=== PATIENT | female | born 1990 | race Caucasian/White ===

== ENCOUNTER 2019-12-07 09:46 | Inpatient (IN) | payer OTHER, SELFPAY ==
[2019-12-07] VITALS (71 sets, daily range): BP systolic 81–143; BP diastolic 47–90; PULSE 42–157; RESP 13–20; TEMP 36.6–36.9; O2SAT 84–100; BMI 38.5
[2019-12-07] MEDS: LACTATED RINGERS 1,000 ML 999 ML IV CONT ×3 (10:30→11:30)
[2019-12-07 10:38] LABS: Basophils Absolute Auto 0.1 K/mm3 (0.0-0.1); Basophils Percent Auto 0.4 % (0.2-1.2); Eosinophils Absolute Auto 0.1 K/mm3 (0-0.3); Eosinophils Percent Auto 0.7 % (0-4.4); Hematocrit 32.9 % (37.0-47.0); Hemoglobin 10.5 g/dL (12.0-15.0); Immature Granulocyte Absolute 0.06 K/mm3 (0.00-0.031); Immature Granulocyte Percent A 0.4 % (0-0.5); Lymphocytes Absolute Auto 2.51 K/mm3 (0.9-3.2); Lymphocytes Percent Auto 18.2 % (18.3-44.2); Mean Corpuscular HGB Conc 31.9 g/dl (32-36); Mean Corpuscular Hemoglobin 25.5 pg (26-34); Mean Corpuscular Volume 79.9 fl (80-100); Mean Platelet Volume 11.7 fl (7.4-10.4); Monocytes Absolute Auto 0.5 K/mm3 (0.1-0.6); Monocytes Percent Auto 3.8 % (2.6-8.5); Neutrophils Absolute Auto 10.6 K/mm3 (1.3-6.7); Neutrophils Percent Auto 76.5 % (45.5-73.1); Platelet Count Result 286 k/mm3 (150-375); Red Blood Count 4.12 M/mm3 (4.2-5.4); Red Cell Distribution Width 13.7 % (11.5-14.5); White Blood Count 13.8 K/mm3 (4.5-10.0)
--- NOTE | 2019-12-07 10:56 | LDADM ---
This patient, Ara Escobar, was admitted to Labor/Delivery/Recovery 119 on 12/07/19 at 09:46. Plans for scheduled section, pain management and were discussed with patient. Patient/family oriented to hospital policies and general routines including ID bracelet, bed and alarms, visiting hours, pain management, procedures, bathroom and other care routines, personal items, smoking policy, room service/diet and guest tray routines, infant security routines, and visiting hours. Patient/Family are encouraged to report perceived risks to care and to ask questions if they do not understand what they are told or what they should do. See OBIX for further documentation.
--- NOTE | 2019-12-07 10:56 | PM.IMHP ---
H&P: HPI History of Present Illness Chief complaint: Scheduled C/S Narrative: Ara Escobar is a 29 yo @ 39.2wks who presents for scheduled primary section due to malpresentation (transverse, spine up). She denies any issues. Her course was otherwise uncomplicated and she had routine care with Dr. Nielson. She denies contractions, leakage of fluid, vaginal bleeding. Good movement. Review of Systems Review of Systems: All systems reviewed & are unremarkable except as noted in HPI and below Constitutional: Constitutional: Denies body ache(s), Denies chills and Denies fatigue Eyes: Eyes: Denies blurry vision ENT: Denies nasal congestion Cardiovascular: Cardiovascular: Denies chest pain and Denies palpitations Respiratory: Respiratory: Denies cough, Denies dyspnea and Denies wheezing Gastrointestinal: Gastrointestinal: Denies abdominal pain, Denies nausea and Denies vomiting Genitourinary: Genitourinary: Denies dysuria, Denies pelvic pain and Denies vaginal discharge Integumentary/Breasts: Skin/Breast: Denies rash Neurologic: Denies headache(s) Psychiatric: Psychiatric: Reports no additional psychiatric complaints [facility] Family History Family History Mother Asthma Social History Social History Smoking packs per day: 10 Smoking cigarettes per day: 200.0 Years smoked: 8 Smoking pack-years: 80.00 Smoking status: Current every day smoker Tobacco type: cigarettes Second hand tobacco smoke exposure: Yes Substance use: never Gender identity (if verbalized by the patient): Female Spiritual care concerns: No Meds Home Medications and Allergies Home Medications Medication Instructions Recorded Confirmed Type PNV,calcium 34-rbrc-twtxm acid 1 tablet PO DAILY 12/07/19 12/07/19 History [PrePlus] acyclovir 800 mg PO DAILY 12/07/19 12/07/19 History aspirin 81 mg PO DAILY 12/07/19 12/07/19 History folic acid 1 mg PO DAILY 12/07/19 12/07/19 History Allergies Allergy/AdvReac Type Severity Reaction Status Date / Time No Known Allergies Allergy Mild Unverified 09/28/18 19:25 Vital Signs Vital Signs - 24 hr 12/07/19 10:16 Pulse Rate 115 H Blood Pressure 125/70 Exam Const: General: comfortable and no acute distress Resp: Effort & Inspection: normal respiratory effort Auscultation: clear to auscultation bilaterally Cardio: Rate: regular rate GI: Other: Gravid : Other: FHT: 140's/mod barbara/ + accels/ no decels - cat 1 TOCO: no contractions Membranes: intact Neuro: Speech: normal speech Psych: Mental Status: mental status grossly normal Affect: normal affect H&P: Results Labs Labs: Short CBC 12/07/19 Range/Units 10:32 WBC 13.8 H (4.5-10.0) K/mm3 Hgb 10.5 L (12.0-15.0) g/dL Hct 32.9 L (37.0-47.0) % Plt Count 286 (150-375) k/mm3 Assessment and Plan Assessment and plan (1) Transverse or oblique presentation: Code(s): O32.2XX0 - Maternal care for transverse and oblique lie, not applicable or unspecified Status: Acute Assessment and Plan: - Transverse position, spine up confirmed prior to section - All risks and benefits explained in detail - All questions/concerns addressed. The appropriate consents were signed - Ancef 2g IV once prior to incision - Hemoglobin 10.5; pt would accept blood in the event of an emergency
[2019-12-07 11:34] LABS: HIV 1/2 Ab P24 Ag Result Negative (Negative)
--- NOTE | 2019-12-07 12:21 | WPDANESEPP ---
Anes - Eval Pre Procedure Procedure: Operation Date: 12/07/19 12:00 Proposed Procedures p Primary Section - Gris Ortiz MD Date/Time: 12/07/19 12:21 Pre Op Diagnosis: Scheduled C/S Patient Data Age: 29 Gender: F Height: 5 ft 2 in Weight: 95.5 kg Last Vital Signs Temp 36.6 C 12/07/19 11:28 Pulse 115 H 12/07/19 10:16 BP 125/70 12/07/19 10:16 Allergies Allergy/AdvReac Type Severity Reaction Status Date / Time No Known Allergies Allergy Mild Unverified 09/28/18 19:25 Home Medications Medication Instructions Recorded Confirmed Type PNV,calcium 59-wgfn-pgait acid 1 tablet PO DAILY 12/07/19 12/07/19 History [PrePlus] acyclovir 800 mg PO DAILY 12/07/19 12/07/19 History aspirin 81 mg PO DAILY 12/07/19 12/07/19 History folic acid 1 mg PO DAILY 12/07/19 12/07/19 History Laboratory Tests 12/07/19 12/07/19 12/07/19 10:32 10:32 10:32 WBC 13.8 K/mm3 H K/mm3 (4.5-10.0) RBC 4.12 M/mm3 L M/mm3 (4.2-5.4) Hgb 10.5 g/dL L g/dL (12.0-15.0) Hct 32.9 % L % (37.0-47.0) MCV 79.9 fl L fl (80-100) MCH 25.5 pg L pg (26-34) MCHC 31.9 g/dl L g/dl (32-36) RDW 13.7 % % (11.5-14.5) Plt Count 286 k/mm3 k/mm3 (150-375) MPV 11.7 fl H fl (7.4-10.4) Immature Gran % (Auto) 0.4 % % (0-0.5) Neut % (Auto) 76.5 % H % (45.5-73.1) Lymph % (Auto) 18.2 % L % (18.3-44.2) [place] % (Auto) 3.8 % % (2.6-8.5) Eos % (Auto) 0.7 % % (0-4.4) Baso % (Auto) 0.4 % % (0.2-1.2) Lymph # (Auto) 2.51 K/mm3 K/mm3 (0.9-3.2) [place] # (Auto) 0.5 K/mm3 K/mm3 (0.1-0.6) Eos # (Auto) 0.1 K/mm3 K/mm3 (0-0.3) Baso # (Auto) 0.1 K/mm3 K/mm3 (0.0-0.1) Abs Immat Gran (auto) 0.06 K/mm3 H K/mm3 (0.00-0.031) Absolute Neuts (auto) 10.6 K/mm3 H K/mm3 (1.3-6.7) Absolute Nucleated RBC 0.0 K/mm3 K/mm3 (0.0-0.012) Nucleated RBC % 0.0 % % (0.0-0.2) RPR Pending HIV 1&2 Ab/P24 Ag 4thGn Blood Type O Positive Antibody Screen Negative 12/07/19 10:32 WBC RBC Hgb Hct MCV MCH MCHC RDW Plt Count MPV Immature Gran % (Auto) Neut % (Auto) Lymph % (Auto) [place] % (Auto) Eos % (Auto) Baso % (Auto) Lymph # (Auto) [place] # (Auto) Eos # (Auto) Baso # (Auto) Abs Immat Gran (auto) Absolute Neuts (auto) Absolute Nucleated RBC Nucleated RBC % RPR HIV 1&2 Ab/P24 Ag 4thGn Negative (Negative) Blood Type Antibody Screen Patient hx anesthesia problems: none Family hx anesthesia problems: none [facility] Family History Family History Mother Asthma Social History Social History Smoking packs per day: 10 Smoking cigarettes per day: 200.0 Years smoked: 8 Smoking pack-years: 80.00 Smoking status: Current every day smoker Tobacco type: cigarettes Second hand tobacco smoke exposure: Yes Substance use: never Gender identity (if verbalized by the patient): Female Spiritual care concerns: No Exam Day of Procedure 12/07/19 12:21 Patient weight: obese Heart: regular rate and rhythm Lungs: clear to auscultation Airway: Mallampati scale class II Neurological: alert and oriented
[2019-12-07] MEDS: OXYTOCIN 30 UNITS/NS 500 ML 30 UNITS/500 ML BAG 125 UNITS IV CONT (14:33)
--- NOTE | 2019-12-07 14:34 | PM.OBPRVD ---
OB - Delivery Note Procedure Delivery date: 12/07/19 Procedure: Procedures Operation Date: 12/07/19 12:00 Actual Procedures Side Surgeon p Section Gris Ortiz MD events: No Care Intrapartal events: Abnormal Presentation (transverse) Route of delivery: Estimated blood loss (mL): 550 Anesthesia type: Epidural Disposition: PACU Narrative: After abnormal position was verified via ultrasound, all risks and benefits were explained in detail. The patient was taken operating room for primary low transverse section. Epidural anesthesia was noted be adequate and she was then prepped and draped in usual sterile fashion in the dorsal position. A Pfannenstiel skin incision was made and carried down through the subcutaneous tissue using Bovie cautery. The rectus fascia was identified and nicked on either side of the midline. The incision was extended laterally using curved mayos. The superior aspect of the fascia was grasped with Yoandy clamps and the underlying rectus muscles were dissected away from the rectus fascia. The same maneuver was performed inferiorly. The rectus muscles were then in the midline and the peritoneum was entered bluntly without complications. A Rich was placed superiorly and a bladder blade inferiorly after a bladder flap was developed. A low transverse incision was made on the uterus and the amniotic sac was ruptured with clear fluid. The fetus was found to be transverse back down and the presenting part was the left arm. The arm was kept in the uterus and the infant was attempted to be delivered breech, however, I was unable to reposition the infant into breech position. The head was then attempted to be brought down to hysterotomy. Using bandage scissors a T-incision was made to allow for more space. With fundal pressure the head was brought up to the hysterotomy and the remaining portion of the shoulders and body were delivered without complications. The mouth and nose were bulb suctioned and the infant had spontaneous cry. The umbilical cord was clamped and cut and the infant was handed off to the waiting pediatric nurse. A segment of cord was collected for cord gases and the remaining cord blood was collected for typing. With Pitocin running and gentle traction on the cord, the placenta delivered without complications. Ring forceps were then used to grasp the edges of the hysterotomy. The uterus was then cleared of all clots and debris using a clean lap. The hysterotomy was repaired in a running interlocking fashion using 0 Vicryl, as well as the additional vertical incision. A 2nd layer imbricating closure using 0 Vicryl was made and the hysterotomy was noted to be hemostatic. The bilateral adnexa were examined and found to be within normal limits. The abdomen was then cleared of all clots and debris. The hysterotomy incision was once again examined and found to be hemostatic. The lower uterine segment was noted to have a bleeding vessel from the bladder flap, therefore a figure of 8 stitch using 3 0 Vicryl was placed. The site continued to ooze and pressure was applied and good hemostasis was noted. The peritoneum, rectus muscles, and rectus fascia were examined and found to be hemostatic. The rectus fascia was then reapproximated using 0 Vicryl in a running fashion. The subcutaneous tissue was then irrigated and made hemostatic with Bovie cautery and reapproximated using 0 Vicryl in a running fashion. The skin was reapproximated using 4 0 Monocryl in a subcuticular fashion and a dressing was placed over the incision. Sponge, lap, needle, and instrument counts were correct at the end of the procedure. Patient tolerated the procedure well and was taken to recovery in stable condition. The patient was informed of the T-incision made on her uturus and need for repeat section if she were to get again. Baby
[2019-12-07 16:07] LABS: Rapid Plasma Reagin Non-Reactive (NonReactive)
--- NOTE | 2019-12-07 16:44 | OBPPTRN ---
Patient transferred to post room #288 via stretcher. Support person present. Oriented to unit, room, information board, rooming in, admission packet and security measures. Patient verbalizes understanding.
[2019-12-07] MEDS: DEXTROSE 5%/0.45% SOD CHL 1,000 ML 125 ML IV CONT (19:11)
[2019-12-08 04:00] VITALS: BP 107/71; PULSE 91; RESP 16; TEMP 36.6; O2SAT 100
[2019-12-08 05:30] LABS: Basophils Percent Auto 0.4 % (0.2-1.2); Eosinophils Absolute Auto 0.1 K/mm3 (0-0.3); Eosinophils Percent Auto 0.7 % (0-4.4); Hematocrit 29.2 % (37.0-47.0); Immature Granulocyte Absolute 0.04 K/mm3 (0.00-0.031); Immature Granulocyte Percent A 0.4 % (0-0.5); Lymphocytes Absolute Auto 1.86 K/mm3 (0.9-3.2); Lymphocytes Percent Auto 17.4 % (18.3-44.2); Mean Corpuscular HGB Conc 30.8 g/dl (32-36); Mean Corpuscular Hemoglobin 25.3 pg (26-34); Mean Platelet Volume 11.9 fl (7.4-10.4); Monocytes Absolute Auto 0.5 K/mm3 (0.1-0.6); Neutrophils Absolute Auto 8.1 K/mm3 (1.3-6.7); Neutrophils Percent Auto 76.1 % (45.5-73.1); Platelet Count Result 231 k/mm3 (150-375); Red Blood Count 3.56 M/mm3 (4.2-5.4); Red Cell Distribution Width 13.6 % (11.5-14.5); White Blood Count 10.7 K/mm3 (4.5-10.0)
--- NOTE | 2019-12-08 07:45 | WPDANLDNPN2 ---
Anes-Prog Note L&D-Neuraxial Date/Time: 12/08/19 07:45 Neuraxial medications: intrathecal PF morphine Opiod-related complaints: none Patient feedback: Patient satisfied with post-operative pain management.
--- NOTE | 2019-12-08 07:45 | WPDANLDPN2 ---
Anes-Prog Note L&D Date/Time: 12/08/19 07:45 Comfortable throughout: section Neuraxial method: spinal Epidural/Spinal procedure site: clean & non-tender Neuro status: Neuro function grossly intact. Cardiovascular status: normal Respiratory status: normal Airway patency: baseline Mental status: baseline Post-Op hydration status: normal Vital Signs: Last Vital Signs Temp 36.6 C 12/08/19 04:00 Pulse 91 12/08/19 04:00 Resp 16 12/08/19 04:00 BP 107/71 12/08/19 04:00 Pulse Ox 100 12/08/19 04:00 I/O: Intake & Output 12/07/19 12/07/19 12/08/19 15:59 23:59 07:59 Intake Total 3100 600 1600 Output Total 200 2650 Balance 2900 600 -1050 Post-procedural complaints: none Patient feedback: Patient satisfied with anesthetic care.
[2019-12-08 07:55] VITALS: BP 107/73; PULSE 109; RESP 16; TEMP 36.9; O2SAT 100
--- NOTE | 2019-12-08 08:40 | PM.OBPNVD ---
OB - PN: Subj Subjective Date/time seen: 12/08/19 08:40 Interval history: 29yo s/p Primary section with a inverted T incision secondary to malposition (transverse) on 12/06. She states she is doing well. Pain is well controlled. Tolerating diet without nausea/vomiting. Denies chest pain, shortness of breath, fevers, chills. Urinary summers removed this morning. Patient comments: no complaints and pain well controlled [place] baby status: doing well feeding status: breast and bottle feeding OB - PN: Obj Data Labs CBC & Chem 7: 12/08/19 04:57 Labs: Laboratory Results - last 24 hr 12/07/19 12/07/19 12/07/19 10:32 10:32 10:32 WBC 13.8 H RBC 4.12 L Hgb 10.5 L Hct 32.9 L MCV 79.9 L MCH 25.5 L MCHC 31.9 L RDW 13.7 Plt Count 286 MPV 11.7 H Immature Gran % (Auto) 0.4 Neut % (Auto) 76.5 H Lymph % (Auto) 18.2 L [place] % (Auto) 3.8 Eos % (Auto) 0.7 Baso % (Auto) 0.4 Lymph # (Auto) 2.51 [place] # (Auto) 0.5 Eos # (Auto) 0.1 Baso # (Auto) 0.1 Abs Immat Gran (auto) 0.06 H Absolute Neuts (auto) 10.6 H Absolute Nucleated RBC 0.0 Nucleated RBC % 0.0 RPR Non-reactive HIV 1&2 Ab/P24 Ag 4thGn Blood Type O Positive Antibody Screen Negative 12/07/19 12/08/19 10:32 04:57 WBC 10.7 H RBC 3.56 L Hgb 9.0 L Hct 29.2 L MCV 82.0 MCH 25.3 L MCHC 30.8 L RDW 13.6 Plt Count 231 MPV 11.9 H Immature Gran % (Auto) 0.4 Neut % (Auto) 76.1 H Lymph % (Auto) 17.4 L [place] % (Auto) 5.0 Eos % (Auto) 0.7 Baso % (Auto) 0.4 Lymph # (Auto) 1.86 [place] # (Auto) 0.5 Eos # (Auto) 0.1 Baso # (Auto) 0.0 Abs Immat Gran (auto) 0.04 H Absolute Neuts (auto) 8.1 H Absolute Nucleated RBC 0.0 Nucleated RBC % 0.0 RPR HIV 1&2 Ab/P24 Ag 4thGn Negative Blood Type Antibody Screen OB - PN A/P Assessment and Plan (1) delivery delivered: Code(s): O82 - Encounter for delivery without indication Status: Acute Assessment and Plan: Routine /postop care Ambulate Pain management (2) Acute blood loss as cause of postoperative anemia: Code(s): D62 - Acute posthemorrhagic anemia Status: Acute Assessment and Plan: Iron supplements Time Spent With Patient Time: Total time spent is greater than 50% in coordination of care (as documented) at patient's floor/unit and/or counseling patient: Review of Systems Review of Systems: All systems reviewed & are unremarkable except as noted in HPI and below Exam Const: General: comfortable, no acute distress, alert and awake Orientation/consciousness: patient oriented x3 Resp: Effort & Inspection: normal respiratory effort Cardio: Rate: regular rate GI: Other: soft, nontender, nondistended. Bandage in place. Psych: Appearance: grossly normal Mental Status: mental status grossly normal Affect: normal affect Attitude: cooperative Judgement: Good judgement present (Psych)
[2019-12-08] MEDS: DOCUSATE SODIUM 100 MG CAPSULE PO ×2 (08:46→15:47)
[2019-12-08] MEDS: MULTIVIT/MIN/PREN/FOL AC/IRON TABLET 1 TAB PO (08:46)
[2019-12-08] MEDS: POLYSACCHARIDE IRON COMPLEX 150 MG CAPSULE PO ×2 (08:47→15:47)
--- NOTE | 2019-12-08 11:15 | PC.NURSE ---
Consult with pt., mother states she has not put infant to breast and may continue with formula feeding. Requested mother call out for assist if she chooses to put infant to breast.
[2019-12-08 12:50] VITALS: BP 116/60; PULSE 92; RESP 18; TEMP 37.5; O2SAT 99
[2019-12-08] MEDS: IBUPROFEN 600 MG TABLET PO ×2 (15:46→23:47)
[2019-12-08 19:54] VITALS: BP 118/52; PULSE 78; RESP 15; TEMP 37; O2SAT 100
[2019-12-09] MEDS: IBUPROFEN 600 MG TABLET PO (05:22)
[2019-12-09 07:50] VITALS: BP 98/62; PULSE 75; RESP 20; TEMP 36.4; O2SAT 100
--- NOTE | 2019-12-09 09:29 | P.DS_ITS ---
DS: Diagnosis Admitting Diagnosis Admitting Diagnosis: Maternal care for transverse and oblique lie, not applicabl e or unspecified OB - DS: Summary OB Procedures : None OB Procedures Intrapartum: OB Procedures: : None Peripartum Data Procedures: Procedures Operation Date: 12/07/19 12:00 Actual Procedures Side Surgeon p Section Gris Ortiz MD Time Spent with Patient Time attestation: Total time spent providing and/or coordinating discharge services: DS: Data Data Completed and Pending Pending studies at discharge: Pending at discharge 12/07/19 13:04 Surgical [PTH] Routine Discharge Plan Discharge Discharging Clinician: Lonnie Ventura Patient Disposition: Home, Self-Care Activity: as tolerated Diet: as tolerated Wound Care Instructions: incision open to air Patient Instructions: How to Stop Smoking (DC), Antibiotic Form Stand Alone Forms: General Discharge Information Follow-up/Referrals: Lonnie Ventura MD [Physician] - Gris Ortiz MD [Physician] - 1 Week Discharge Medications: New hydrocodone-acetaminophen 5-325 mg Tablet 1 tab PO Q3H PRN (Reason: Moderate Pain (4-6)) Qty: 30 RF: 0 ibuprofen 600 mg Tablet 600 mg PO Q6H PRN (Reason: Cramping) Qty: 30 RF: 0 Continued acyclovir 800 mg tablet 800 mg PO DAILY RF: 0 folic acid 1 mg tablet 1 mg PO DAILY RF: 0 PrePlus 27 mg iron- 1 mg tablet 1 tablet PO DAILY RF: 0 Discontinued aspirin 81 mg tablet,delayed release (DR/EC) 81 mg PO DAILY RF: 0 Date of admission: 12/07/19 09:46 Primary Care Provider: Paolo Pagan Admitting Provider: Gris Ortiz Attending physician on admission: Gris Ortiz
[2019-12-09] MEDS: MULTIVIT/MIN/PREN/FOL AC/IRON TABLET 1 TAB PO (10:13)
[2019-12-09] MEDS: POLYSACCHARIDE IRON COMPLEX 150 MG CAPSULE PO (10:13)
[2019-12-09] MEDS: DOCUSATE SODIUM 100 MG CAPSULE PO (10:13)
[2019-12-10 09:25] VITALS: BP 115/78; PULSE 85; RESP 16; TEMP 36.8
== END 2019-12-09 12:32 | disposition home or self-care (01) | DRG 540 ==
LOC: ANHOB2 12-09 09:49 → ANHLDR 12-10 12:46 → ANHOB2 12-10 12:46
PROVIDERS: Admitting Provider Obstetrics & Gynecology; PCP Family Medicine; Visit Provider Obstetrics & Gynecology
PROC: 10D00Z1 Extraction of Products of Conception, Low, Open Approach (ICD-10-PCS; CPT 59514; principal; 2019-12-07 12:00)
DX: O32.2XX0 Maternal care for transverse and oblique lie, not applicable or unspecified (principal); Z37.0 Single live birth; Z3A.39 39 weeks gestation of pregnancy; O99.214 Obesity complicating childbirth; E66.9 Obesity, unspecified; O99.334 Smoking (tobacco) complicating childbirth; F17.210 Nicotine dependence, cigarettes, uncomplicated; O99.02 Anemia complicating childbirth; D62 Acute posthemorrhagic anemia; O98.52 Other viral diseases complicating childbirth; B00.9 Herpesviral infection, unspecified; O99.344 Other mental disorders complicating childbirth; F41.9 Anxiety disorder, unspecified
CPT/HCPCS: 36415; 85025; 86592; 86703; 86850; 86900; 86901; 88307; A9270; G0432; J0131; J1200; J2274; J2370; J2590; J7120

== ENCOUNTER 2020-11-14 15:07 | Emergency (ER) | payer OTHER, SELFPAY ==
--- NOTE | 2020-11-14 15:27 | ED.DENTAL ---
HPI - Dental/Oral General Chief complaint: Dental/Oral Stated complaint: Tooth Ache Source: patient and RN notes reviewed Limitations: no limitations History of Present Illness HPI Narrative: The obese patient, a smoker/occasional drinker, presents with toothache. Patient states records indicate she has had several visits for dental complaints, including several rounds of differing antibiotics [clindamycin, and Keflex most recently]. She has over 1 week history of right upper dental pain, where she had a filling. No fever, visible edema, hoarseness, trismus; symptoms are mild, worse eating Related Data Allergies Allergy/AdvReac Type Severity Reaction Status Date / Time No Known Allergies Allergy Mild Unverified 11/14/20 15:15 Review of Systems Review of Systems: Narrative: General/Constitutional: No weight loss,fever Eyes: N0: Redness,discharge Ears/Nose/Throat: No: Epistaxis,ear discharge Respiratory: Denies: Hemoptysis Gastrointestinal: No Vomiting, Bleeding-rectal Skin: No Lumps, eruption Neurologic: No Focal Weakness,Sz Hematologic: Denies: Petechiae/Purpura Psychiatric: No: Suicida ideationl All Other Systems: Reviewed and Negative PMFSH Family History Family History Mother Asthma Social History Social History Smoking packs per day: 10 Smoking cigarettes per day: 200.0 Years smoked: 8 Smoking pack-years: 80.00 Smoking status: Current every day smoker Tobacco type: cigarettes Second hand tobacco smoke exposure: Yes Substance use: never Gender identity (if verbalized by the patient): Female Spiritual care concerns: No Comments At time of signature, agree with nursing past medical, surgical, social and family history. There is no relevant family history pertinent to the presenting complaint Exam Narrative: Exam Narrative: General Appearance: Well appearing, Well nourished/ Obese EYE: PERRLA, EOMI, Conjunctiva clear Mouth/Throat: Normal appearing -without mild right jaw swelling, Normal lips, MM moist, Uvula midline (scattered dental caries and fillings) Neck: Supple, No adenopathy Musculoskeletal: Full ROM, Non tender, Normal strength Skin: Warm, Dry, Normal color Neurological: A&O x3, Speech clear, CN II-XII intact Psychiatric: Normal mood, Normal affect Course Vital Signs Vital signs: Vital Signs Temperature 98.0 F 11/14/20 15:28 Pulse Rate 93 11/14/20 15:28 Respiratory Rate 16 11/14/20 15:28 Blood Pressure 131/62 11/14/20 15:28 Pulse Oximetry 99 11/14/20 15:28 Temperature 98.0 F 11/14/20 15:28 Pulse Rate 93 11/14/20 15:28 Respiratory Rate 16 11/14/20 15:28 Blood Pressure 131/62 11/14/20 15:28 Pulse Oximetry 99 11/14/20 15:28 Discharge Plan Discharge Clinical Impression: Toothache, Gingivitis Patient Disposition: Home, Self-Care Condition: Stable Instructions: Antibiotic Form Prescriptions: New azithromycin 250 mg tablet See Rx Instructions .ROUTE .COMPLEX Qty: 6 RF: 0 Lidocaine Viscous 2 % solution 5 ml MUCOUS MEM QID PRN (Reason: pain) Qty: 100 RF: 1 tramadol 50 mg tablet 50 mg PO Q6H PRN (Reason: pain) Qty: 15 RF: 1 Follow-up/Referrals: Paolo Pagan MD [Primary Care Provider] - Stand Alone Forms: Work/School Release IP
[2020-11-14 15:28] VITALS: BP 131/62; PULSE 93; RESP 16; TEMP 36.7; O2SAT 99
== END 2020-11-14 15:36 | disposition home or self-care (01) ==
PROVIDERS: Emergency Provider Emergency Medicine; PCP Family Medicine
DX: K08.89 Other specified disorders of teeth and supporting structures (principal); K05.10 Chronic gingivitis, plaque induced; F17.210 Nicotine dependence, cigarettes, uncomplicated
CPT/HCPCS: 99213; G0463

== ENCOUNTER 2022-07-14 13:32 | Emergency (ER) | payer OTHER, SELFPAY ==
[2022-07-14 13:43] VITALS: BP 143/89; PULSE 93; RESP 16; TEMP 36.7; O2SAT 100
--- NOTE | 2022-07-14 14:00 | ED.BACK ---
HPI - Back Pain/Injury General Chief Complaint: Back Pain/Injury Stated Complaint: Back Pain, Right Side Hole In Skin Time Seen by Provider: 07/14/22 13:50 Source: patient Mode of arrival: ambulatory Limitations: no limitations History of Present Illness HPI Narrative: Mrs. Escobar is a 32-year-old female patient presenting to clinic today with complaints of a sore under her right breast and low back pain. Reports that the sore has been proximally going on for 1 week states it started out as a knotted area and she popped it and it has been draining. Reports that she has had some green and yellow drainage coming from it. She also reports some lower back pain. No injury noted. She denies any saddle anesthesia or loss of bowel or bladder. She reports pain across the entire low back. 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 Rates her pain 06/24 current Related Data Allergies Allergy/AdvReac Type Severity Reaction Status Date / Time No Known Allergies Allergy Mild Verified 07/14/22 13:37 Review of Systems Review of Systems: Pertinent positives per HPI. Patient denies any fever, chills, rash, headache, visual changes, dizziness, cough, runny nose, sore throat, shortness of breath, chest pain, palpitations, nausea, vomiting, diarrhea, constipation, abdominal pain, or any urinary issues. PMFSH Family History Family History Mother Asthma Social History Social History Smoking packs per day: 10 Smoking cigarettes per day: 200.0 Years smoked: 8 Smoking pack-years: 80.00 Smoking status: Current every day smoker Tobacco type: cigarettes Second hand tobacco smoke exposure: Yes Substance use: never Gender identity (if verbalized by the patient): Female Spiritual care concerns: No Comments At the time of my signature, I reviewed and agree with the nursing past medical, surgical, social, and family history. There is no relevant family history pertinent to the patient complaint. Exam Narrative: General: Well-developed, well nourished, in no apparent distress Head: Normocephalic, atraumatic. Cardio: Regular rate and rhythm, s1 and s2 normal, no murmur appreciated. Resp: Clear to auscultation bilaterally, no rhonchi, rales, wheezing or rubs. Musculoskeletal: No deformity, exquisitely tender to the lower spine and paraspinous muscles to palpation, grossly normal range of motion, right straight leg test positive at approximately 60?, patellar reflexes 2+ bilaterally, bilateral muscle strength strong and equal, negative footdrop, peripheral pulse strong, no edema, no cyanosis, normal gait and station Skin: [place], warm, dry, small over sore with red base that is tender to palpation with very mild induration without fluctuance. Is draining some yellowish discharge. Culture was obtained and sent to the lab Course Course Emergency Course: Portions of this record may have been created with voice recognition software. Level of Care: Express Care Visit Vital Signs Vital signs: Vital Signs Temperature 36.7 C 07/14/22 13:43 Pulse Rate 93 07/14/22 13:43 Respiratory Rate 16 07/14/22 13:43 Blood Pressure 143/89 H 07/14/22 13:43 Pulse Oximetry 100 07/14/22 13:43 Oxygen Delivery Room Air 07/14/22 13:43 Temperature 36.7 C 07/14/22 13:43 Pulse Rate 93 07/14/22 13:43 Respiratory Rate 16 07/14/22 13:43 Blood Pressure 143/89 H 07/14/22 13:43 Pulse Oximetry 100 07/14/22 13:43 Oxygen Delivery Room Air 07/14/22 13:43 Vital signs reviewed MDM - Back Pain/Injury MDM Narrative Medical decision making narrative: at the time of the patient's resting comfortably on the exam table. Eyes suspect she has a low back strain as well as a bacterial skin infection to the right breast. Supportive measures were discussed with the patient she voiced understanding
== END 2022-07-14 14:08 | disposition home or self-care (01) ==
PROVIDERS: Emergency Provider Nurse Practitioner Family; PCP Family Medicine
DX: S39.012A Strain of muscle, fascia and tendon of lower back, initial encounter (principal); X58.XXXA Exposure to other specified factors, initial encounter; L08.9 Local infection of the skin and subcutaneous tissue, unspecified; B96.89 Other specified bacterial agents as the cause of diseases classified elsewhere; F17.210 Nicotine dependence, cigarettes, uncomplicated
CPT/HCPCS: 87070; 87075; 87205; 99213; G0463

== ENCOUNTER 2023-07-22 18:54 | Emergency (ER) | payer OTHER, SELFPAY ==
[2023-07-22 19:06] VITALS: BP 146/97; PULSE 98; RESP 18; TEMP 37.6; O2SAT 99
--- NOTE | 2023-07-22 19:47 | ED.GENADULT ---
HPI - General Adult General Chief complaint: Wound/Laceration Stated complaint: sore on right inner thigh Source: patient Mode of arrival: ambulatory Limitations: no limitations History of Present Illness HPI narrative: Patient presents for evaluation of pain and swelling in the right groin since yesterday. She reports associated redness. No fever, chills, nausea, vomiting, drainage from the affected area. She has taken 800mg ibuprofen without much improvement. She does not provide me with a descriptive quality or numerical rating to the pain. She is not diabetic. No hx of similar symptoms. Related Data Home Medications Medication Instructions Recorded Confirmed etonogestrel 68 mg subdermal 1 implant subdermal ONCE 07/22/23 07/22/23 implant (Nexplanon) Allergies Allergy/AdvReac Type Severity Reaction Status Date / Time No Known Allergies Allergy Mild Verified 07/22/23 19:05 Review of Systems Review of Systems: CONSTITUTIONAL: Denies fever, chills, or sweats. EYES: Denies visual changes, redness, or discharge. ENT: Denies rhinorrhea, congestion, sore throat, or otalgia. CARDIOVASCULAR: Denies chest pain, palpitations, or edema. RESPIRATORY: Denies cough or dyspnea. GASTROINTESTINAL: Denies abdominal pain, nausea, vomiting, or diarrhea. GENITOURINARY: Denies dysuria or hematuria. SKIN: Reports swelling and redness to right inguinal region. MUSCULOSKELETAL: Reports right thigh pain. Denies back pain or joint pain. NEUROLOGIC: Denies headache, numbness, dizziness, or weakness. PSYCHIATRIC: Denies anxiety or depression. [facility] Past Medical History Medical History (Updated 07/22/23 @ 20:17 by SAGE Julian, ) Abscess of right groin Surgical History Surgical History No pertinent past surgical history Family History Family History Mother Asthma Social History Social History Smoking packs per day: 10 Smoking cigarettes per day: 200.0 Years smoked: 8 Smoking pack-years: 80.00 Smoking status: Current every day smoker Tobacco type: cigarettes Second hand tobacco smoke exposure: Yes Substance use: never Gender identity (if verbalized by the patient): Female Spiritual care concerns: No Exam Narrative: GENERAL: Well-appearing, well-nourished, and in no acute distress. HEAD: Normocephalic, atraumatic. EYES: PERRLA and EOMI. ENT: Nares clear, no rhinorrhea or epistaxis. Mucous membranes moist. Oropharynx without tonsillar hypertrophy exudate or other lesions. Bilateral TMs pearly villareal nonbulging NECK: Supple. No adenopathy or masses. No carotid bruits or JVD CHEST: Clear to auscultation. No respiratory distress. No wheezes rales or rhonchi HEART: Regular rate and rhythm. No murmur heard. Normal peripheral pulses. ABDOMEN: Soft, nontender, nondistended, normal active bowel sounds. EXTREMITIES: Normal range of motion. No edema. SKIN: 15 x 7 cm area of erythema noted to the right inguinal region with a 2 x 1 cm area of fluctuance NEURO: No focal deficits. Alert and oriented x3. PSYCH: Normal mood and affect. Course Course Emergency Course: this is a 33-year-old female who presented for evaluation of an abscess to the right groin. Incision and drainage was performed and patient tolerated well. Wound culture obtained. Will discharge with Bactrim, Keflex and hydrocodone. She has a Nexplanon. Follow-up with primary provider. Go to the ER for systemic signs of infection or worsening symptoms. Patient in agreement with plan of care Level of Care: Express Care Visit Vital Signs Vital signs: Vital Signs Temperature 37.6 C H 07/22/23 19:06 Pulse Rate 98 07/22/23 19:06 Respiratory Rate 18 07/22/23 19:06 Blood Pressure 146/97 H 07/22/23 19:06 Pulse Oximetry 99 1
== END 2023-07-22 20:18 | disposition home or self-care (01) ==
PROVIDERS: Emergency Provider Nurse Practitioner; PCP Family Medicine
DX: L02.214 Cutaneous abscess of groin (principal); F17.210 Nicotine dependence, cigarettes, uncomplicated
CPT/HCPCS: 10061; 87070; 87075; 87076; 87185; 87205; 99213; G0463

== ENCOUNTER 2023-11-28 17:20 | Emergency (ER) | payer OTHER, SELFPAY ==
[2023-11-28 17:45] VITALS: BP 141/86; PULSE 92; RESP 18; TEMP 36.7; O2SAT 98
--- NOTE | 2023-11-28 17:45 | ED.WOUNDLAC ---
HPI - Wound/Laceration General Chief Complaint: Wound/Laceration Stated Complaint: Wound Check Time Seen by Provider: 11/28/23 17:50 Source: patient Mode of arrival: ambulatory Limitations: no limitations History of Present Illness HPI narrative: Jeff is a 33-year-old female patient presenting to the clinic today with complaints of an abscess to the left inner thigh. She reports that this has been going on for about a week. Has recently had an abscess to the right thigh a couple months ago and had to have it drained in the clinic. Related Data Home Medications Medication Instructions Recorded Confirmed etonogestrel 68 mg subdermal 1 implant subdermal ONCE 07/22/23 11/28/23 implant (Nexplanon) Allergies Allergy/AdvReac Type Severity Reaction Status Date / Time No Known Allergies Allergy Mild Verified 11/28/23 17:31 Review of Systems Review of Systems: Pertinent positives per HPI. Patient denies any fever, chills, rash, headache, visual changes, dizziness, cough, shortness of breath, chest pain, palpitations, nausea, vomiting, diarrhea, constipation, abdominal pain, or any urinary issues. [facility] Past Medical History Medical History (Updated 11/28/23 @ 18:03 by Charly Richard APRN) Abscess of right groin Surgical History Surgical History No pertinent past surgical history Family History Family History Mother Asthma Social History Social History Smoking packs per day: 10 Smoking cigarettes per day: 200.0 Years smoked: 8 Smoking pack-years: 80.00 Smoking status: Current every day smoker Tobacco type: cigarettes Second hand tobacco smoke exposure: Yes Substance use: never Gender identity (if verbalized by the patient): Female Spiritual care concerns: No Comments At the time of my signature, I reviewed and agree with the nursing past medical, surgical, social, and family history. There is no relevant family history pertinent to the patient complaint. Exam Narrative: General: Well-developed, obese, in no apparent distress Head: Normocephalic, atraumatic. Cardio: Regular rate and rhythm, s1 and s2 normal, no murmur appreciated. Resp: Clear to auscultation bilaterally, no rhonchi, rales, wheezing or rubs. Integumentary: [place], warm, and dry, fluctuant abscess with mild swelling and induration measuring 3 x 2 cm Course Course Emergency Course: Portions of this record may have been created with voice recognition software. Level of Care: Express Care Visit Vital Signs Vital signs: Vital signs reviewed Procedures Abscess I/D lower extremity: Date of Incision: 11/28/23 Side (if applicable): left Local Anesthetic: lidocaine 1% Amount of anesthesia used (mL): 4 Technique: incised with #11 blade Amount of fluid expressed (mL): 5 Irrigation: No Packing used?: none I&D Results: Pus and Blood Abcess I&D Additional Comments: Verbal consent obtained for incision and drainage. Risk and benefits explained and patient voiced understanding. Area was cleansed with antiseptic soap. Area was prepped and draped using sterile technique. 25 gauge needle was then used to instill (4) ml of lidocaine with epi into the wound edges. Patient tolerated well and anesthesia was appropriate. An 11 blade scalpel was then used to make a 0.5cm incision over the abscess. White bloody exudate expressed from cavity. Wound culture obtained and sent to lab. Patient tolerated procedure well. MDM - Wound/Laceration MDM Narrative Medical decision making narrative: At the time of visit patient is resting comfortably on the exam table. Patient appears to be nontoxic. Procedures: Incision and drainage of abscess Plan: I suspect patient has an abscess to the l
== END 2023-11-28 18:15 | disposition home or self-care (01) ==
PROVIDERS: Emergency Provider Nurse Practitioner Family; PCP Family Medicine
DX: L02.416 Cutaneous abscess of left lower limb (principal); F17.210 Nicotine dependence, cigarettes, uncomplicated
CPT/HCPCS: 10060; 87070; 87075; 87076; 87205; 99213; G0463